=== PATIENT | male | born 1930 | race Caucasian/White ===

== ENCOUNTER 2020-06-29 16:18 | Inpatient (IN) | payer OTHER, MEDICARE ==
[~2020-06-29] VITALS: Ht 167.6 cm; Wt 59.5 kg
[2020-06-29 16:40] LABS: Calcium, Ionized (POC) 1.09 mmol/L (1.10-1.46); Chloride (POC) 106 mmol/L (98-108); Creatinine (POC) 1.8 mg/dL (0.8-1.3); Glucose (ISTAT POC) 182 mg/dL (70-99); Hemoglobin (POC) 15.3 g/dL (13.5-17.5); Potassium (POC) 4.3 mmol/L (3.5-5.5); Sodium (POC) 136 mmol/L (135-148); Total CO2 (POC) 22 mmol/L (21-32)
[2020-06-29 16:42] LABS: BASOPHILS ABSOLUTE AUTO 0.03 K/mm3 (0.00-0.23); BASOPHILS PERCENT AUTO 0 % (0-2); EOSINOPHILS ABSOLUTE AUTO 0.07 K/mm3 (0.00-0.68); EOSINOPHILS PERCENT AUTO 1 % (0-6); Hematocrit 44.6 % (37.0-53.0); Hemoglobin 14.3 g/dL (13.5-17.5); IMMATURE GRAN ABSOLUTE AUTO 0.04 K/mm3 (0.00-0.10); IMMATURE GRAN PERCENT AUTO 1 % (0-1); LYMPHOCYTES PERCENT AUTO 33 % (21-46); MONOCYTES ABSOLUTE AUTO 0.41 K/mm3 (0.16-1.47); MONOCYTES PERCENT AUTO 5 % (4-13); Mean Corpuscular HGB 31.8 pg (26.0-34.0); Mean Corpuscular HGB Conc 32.1 g/dL (31.5-36.5); Mean Corpuscular Volume 99 fL (80-100); Mean Platelet Volume 10.5 fL (9.1-12.4); NEUTROPHILS ABSOLUTE AUTO 4.83 K/mm3 (1.96-9.15); NEUTROPHILS PERCENT AUTO 60 % (41-73); Platelet Count 252 K/mm3 (150-400); RDW Coefficient Variation 13.8 % (11.7-14.2); RDW Standard Deviation 50.6 fL (35.1-46.3); White Blood Cell Count 8.08 K/mm3 (4.00-11.30)
[2020-06-29] MEDS ORDERED: ZYRTEC10 M2 PO (16:51)
[2020-06-29] MEDS ORDERED: BENADRYL25 MG (16:52)
[2020-06-29] MEDS ORDERED: LEVSOD75 PO (16:52)
[2020-06-29] MEDS ORDERED: ZOCOR20 MG PO (16:52)
[2020-06-29] MEDS ORDERED: PANT40 PO (16:52)
[2020-06-29] MEDS ORDERED: TAMS.4ER PO (16:53)
[2020-06-29] MEDS ORDERED: TIMO.25OPS BOTHEYES (16:53)
[2020-06-29 17:07] LABS: Troponin I 0.153 ng/mL (0.000-0.040)
[2020-06-29 17:11] LABS: Albumin, Blood 3.4 g/dL (3.4-5.0); Albumin/Globulin Ratio 0.8 (0.8-1.8); Bilirubin, Total 0.5 mg/dL (0.1-1.0); Bun/Creatinine Ratio 15.2 (12.0-20.0); Calcium, Blood 8.8 mg/dL (8.5-10.1); Creatinine, Blood 1.78 mg/dL (0.60-1.20); Globulin, Blood 4.3 g/dL (2.2-4.0); Potassium, Blood 4.4 mmol/L (3.5-5.5); Total Protein, Blood 7.7 g/dL (6.4-8.2)
[2020-06-29 19:29] LABS: International Normalized Ratio 1.02; Prothrombin Time Results 10.9 Sec (9.7-11.5)
[2020-06-29] MEDS ORDERED: Aspir 8181 MG PO (21:26)
[2020-06-30 04:14] LABS: Hematocrit 43.4 % (37.0-53.0); Hemoglobin 14.1 g/dL (13.5-17.5); Mean Corpuscular HGB 31.3 pg (26.0-34.0); Mean Corpuscular HGB Conc 32.5 g/dL (31.5-36.5); Mean Corpuscular Volume 96 fL (80-100); Mean Platelet Volume 10.7 fL (9.1-12.4); Platelet Count 225 K/mm3 (150-400); RDW Coefficient Variation 13.8 % (11.7-14.2); RDW Standard Deviation 49.2 fL (35.1-46.3); Red Blood Cell Count 4.51 M/mm3 (4.30-5.90)
[2020-06-30 04:51] LABS: Bun/Creatinine Ratio 15.2 (12.0-20.0); Calcium, Blood 8.7 mg/dL (8.5-10.1); Creatinine, Blood 1.78 mg/dL (0.60-1.20); Potassium, Blood 4.6 mmol/L (3.5-5.5)
[2020-06-30 04:56] LABS: Troponin I 9.9 ng/mL (0.000-0.040)
--- NOTE | 2020-06-30 05:38 | NUR ---
SHIFT SUMMARY PT ARRIVED TO THE UNIT AROUND 2100 IN STABLE CONDTION, NO REPORT OF CHEST PAIN OR SOB. PT WAS ON 4 LPM VIA NC WITH O2 SATS >90%. BP WAS HYPOTENSIVE 80-90'S SYSTOLIC WITH MAP'S ABOVE 70 WITH A SLIGHT TREND DOWN. HR 80-90'S. TELE SHOWED SINUS RHYTHM WITH FIRST DEGREE HB, AND BUNDLE BRANCH BLOCK. AROUND 0445 TELE SHOWED INCREASE IN PVC'S ABOUT 20/MIN WITH SOME TRIGEMINY. PT DENIED CHEST PAIN T/O SHIFT. TROPONIN TRENDING UP TO 9.9 ON AM LABS. CARDIOLOGY CONSULT CALLED IN. PT HAS BEEN NPO SINCE 2399. PT IS ALERT AND ORIENTED AND SLOW TO RESPOND AT TIMES. PT HAS VERY LIMITED HEARING IN BOTH EARS, LEFT MORE SO THAN RIGHT. DIFFICULT TO COMMUNICATE WITH PT DUE TO [place]. PT STATES HAVING HAD HIS FIRST DOSE OF THE COVID VACC. A COUPLE WEEKS AGO. PT HAS BEEN ON HEPARIN GTT T/O THE NIGHT.
--- NOTE | 2020-06-30 17:54 | NUR ---
PT SUMMARY: PT WITH NO COMPLAINS OF CHEST PAIN/PRESSURE FOR THE SHIFT. VITALS HRR SR WITH FHB AND BBB AT 80'S, BP SYSTOLIC ON THE 90'S MAP ABOVE REMAINED ABOVE 65, SATS ABOVE 95% ON 2L OF O2, DENIES SOB, AFEBRILE. PT ALERT AND ORIENTED AT BASELINE VERY K[place]SEL DE[place] GETS REALLY FRUSTRATED DURING CONVERSATIONS FOR NOT UNDERSTANDING ANYTHING, FINALLY BROUGHT IN PT'S HEARING AID DURING VISITING HOURS, PT FELT A LOT MUCH BETTER PROVIDED INFORMATION ABOUT WHAT DR VAUGHN TOLD THE PT THIS MORNING WITH AT BED SIDE. PT TO KEEP NPO AT MIDNIGHT FOR POSS ANGIO IN AM. DIET RESUMED TODAY, PT TOLERATED WELL. PT REMAINS ON HEPARING GTT AT 11U/KG/HR. PT AMBULATING VIA 1PA IN THE ROOM WITH NO ISSUES, CONTINENT OF BOTH BOWEL AND BLADDER. NO OTHER ISSUES ENCOUNTERED FOR THE SHIFT, ABLE TO MAKE NEEDS KNOWN, WILL MONITOR UNTIL END OF SHIFT.
[2020-07-01 03:21] LABS: Hematocrit 37.4 % (37.0-53.0); Hemoglobin 12.5 g/dL (13.5-17.5); Mean Corpuscular HGB Conc 33.4 g/dL (31.5-36.5); Mean Corpuscular Volume 96 fL (80-100); Mean Platelet Volume 10.7 fL (9.1-12.4); Platelet Count 223 K/mm3 (150-400); RDW Coefficient Variation 14.1 % (11.7-14.2); RDW Standard Deviation 49.6 fL (35.1-46.3); Red Blood Cell Count 3.91 M/mm3 (4.30-5.90); White Blood Cell Count 16.86 K/mm3 (4.00-11.30)
[2020-07-01 03:36] LABS: Bun/Creatinine Ratio 19.8 (12.0-20.0); Calcium, Blood 8.5 mg/dL (8.5-10.1); Creatinine, Blood 1.87 mg/dL (0.60-1.20); Potassium, Blood 4.6 mmol/L (3.5-5.5)
--- NOTE | 2020-07-01 09:33 | NUR ---
Echocardiogram completed.
[2020-07-01 10:55] LABS: Influenza A, PCR NEGATIVE (NEGATIVE); Influenza B, PCR NEGATIVE (NEGATIVE); Resp Syncytial Virus, PCR NEGATIVE (NEGATIVE); SARS-Cov-2 (COVID-19) PCR, MMC NEGATIVE (NEGATIVE)
== END 2020-07-01 12:41 | disposition short-term general hospital (02) | DRG 280 ==
LOC: ER 16:18 → PCU 20:46
PROVIDERS: Emergency Medicine; Internal Medicine; Internal Medicine Cardiovascular Disease; Pharmacist; Physician Assistant; ADMIT Internal Medicine
PROC: 5A09457 Assistance with Respiratory Ventilation, 24-96 Consecutive Hours, Continuous Positive Airway Pressure (ICD-10-PCS; 2020-06-29)
PROC: 4A023N7 Measurement of Cardiac Sampling and Pressure, Left Heart, Percutaneous Approach (ICD-10-PCS; principal; 2020-07-01)
PROC: B211YZZ Fluoroscopy of Multiple Coronary Arteries using Other Contrast (ICD-10-PCS; 2020-07-01)
DX: I25.10 Atherosclerotic heart disease of native coronary artery without angina pectoris (principal); J18.9 Pneumonia, unspecified organism; I21.4 Non-ST elevation (NSTEMI) myocardial infarction; J96.01 Acute respiratory failure with hypoxia; I50.21 Acute systolic (congestive) heart failure; I13.0 Hypertensive heart and chronic kidney disease with heart failure and stage 1 through stage 4 chronic kidney disease, or unspecified chronic kidney disease; I65.22 Occlusion and stenosis of left carotid artery; R79.89 Other specified abnormal findings of blood chemistry; Z20.822 Contact with and (suspected) exposure to COVID-19; N18.30 Chronic kidney disease, stage 3 unspecified; N40.0 Benign prostatic hyperplasia without lower urinary tract symptoms; K21.9 Gastro-esophageal reflux disease without esophagitis; E03.9 Hypothyroidism, unspecified; I44.0 Atrioventricular block, first degree
CPT/HCPCS: 0241U; 36415; 71045; 71260; 76937; 80047; 80048; 80053; 84145; 84484; 85014; 85025; 85027; 85610; 85730; 93005; 93010; 93454; 94640; 94660; 94762; 96374-59; 96375-59; 99152; 99285-25; A9270; C1769; C1894; C8929; J0456; J0696; J1100; J1644; J1940; J2060; J2250; J3010; J7030; J7050; Q9957; Q9967